=== PATIENT | female | born 1945 | race Caucasian/White ===

== ENCOUNTER 2019-09-30 07:11 | Observation (INO) ==
[2019-09-30] MEDS ORDERED: Regadenoson 0.4 MG/5 ML SYRINGE IVP ONE (08:52)
[2019-09-30] MEDS ORDERED: Naloxone 0.4 MG/ML INJ IVP PRN (11:59)
[2019-09-30] MEDS: Aspirin Enteric Coated 81 MG Tablet PO SCH (13:22)
[2019-09-30 13:44] LABS: Basophils # 0.1 K/mcL (0.0-0.2); Basophils % 0.7 %; Eosinophils % 0.4 %; Immature Granulocytes % 0.1 % (0-4); Lymphocytes # 1.3 K/mcL (0.6-4.6); Lymphocytes % 17.5 %; Mean Corpuscular Volume 108.9 fL (83.0-100.0); Mean Platelet Volume 10.1 fL (9.4-12.4); Monocytes # 0.2 K/mcL (0.0-1.3); Monocytes % 3.3 %
[2019-09-30 13:48] LABS: Alanine Aminotransferase 14 Units/L (7-52); Albumin 4.5 g/dL (3.5-5.7); Albumin/Globulin Ratio 1.5 (1.1-2.2); Alkaline Phosphatase 77 Units/L (34-104); Aspartate Amino Transferase 19 Units/L (13-39); BUN/Creatinine Ratio 25 (6-26); Bilirubin,Total 1.5 mg/dL (0.3-1.0); Blood Urea Nitrogen 26 mg/dL (8-23); Calcium 9.7 mg/dL (8.6-10.3); Carbon Dioxide 25 mEq/L (23-29); Chloride 104 mEq/L (98-107); Glucose 138 mg/dL (70-105); Osmolality,Calculated 289 (280-300); Potassium 4.1 mEq/L (3.5-5.1); Sodium 136 mEq/L (136-145); Total Protein 7.5 g/dL (6.4-8.9); eGFR For African Americans > 60 (> 60); eGFR For Non-African Americans 53 (> 60)
[2019-09-30 13:49] LABS: BUN/Creatinine Ratio 25 (6-26); Blood Urea Nitrogen 26 mg/dL (8-23); Calcium 9.7 mg/dL (8.6-10.3); Carbon Dioxide 25 mEq/L (23-29); Chloride 105 mEq/L (98-107); Glucose 138 mg/dL (70-105); Osmolality,Calculated 291 (280-300); Potassium 4.2 mEq/L (3.5-5.1); Sodium 137 mEq/L (136-145); eGFR For African Americans > 60 (> 60); eGFR For Non-African Americans 53 (> 60)
[2019-09-30 13:56] LABS: Hematocrit 40.3 % (35.3-44.9); Mean Corpuscular HGB Conc 32.3 g/dL (31.6-35.5); Mean Corpuscular Hemoglobin 35.1 pg (28.0-33.3); Neutrophils # 5.6 K/mcL (1.6-8.9); Platelet Count 232 K/mcL (140-400); Red Cell Distribution Width 15.1 % (11.5-14.5); White Blood Count 7.2 K/mcL (4.3-11.1)
[2019-10-01 07:32] LABS: Basophils # 0.1 K/mcL (0.0-0.2); Basophils % 0.9 %; Eosinophils # 0.1 K/mcL (0.0-0.6); Eosinophils % 1.4 %; Hematocrit 38.3 % (35.3-44.9); Hemoglobin 12.6 g/dL (11.5-15.4); Immature Granulocytes % 0.2 % (0-4); Lymphocytes # 1.4 K/mcL (0.6-4.6); Lymphocytes % 21.6 %; Mean Corpuscular HGB Conc 32.9 g/dL (31.6-35.5); Mean Corpuscular Hemoglobin 34.8 pg (28.0-33.3); Mean Corpuscular Volume 105.8 fL (83.0-100.0); Monocytes # 0.4 K/mcL (0.0-1.3); Neutrophils # 4.4 K/mcL (1.6-8.9); Platelet Count 222 K/mcL (140-400); Red Blood Count 3.62 M/mcL (3.82-4.97); Segmented Neutrophils % 69.9 %; White Blood Count 6.4 K/mcL (4.3-11.1)
[2019-10-01] MEDS: Aspirin Enteric Coated 81 MG Tablet PO SCH (07:44)
[2019-10-01 07:47] LABS: BUN/Creatinine Ratio 24 (6-26); Blood Urea Nitrogen 24 mg/dL (8-23); Calcium 9.4 mg/dL (8.6-10.3); Carbon Dioxide 25 mEq/L (23-29); Chloride 103 mEq/L (98-107); Chol/HDL Ratio 2.6 (0-4.9); Cholesterol 135 mg/dL (< 200); Glucose 110 mg/dL (70-105); HDL Cholesterol 51 mg/dL (40-59); LDL Cholesterol,Calculated 62 mg/dL (< 100); Osmolality,Calculated 285 (280-300); Potassium 3.7 mEq/L (3.5-5.1); Sodium 135 mEq/L (136-145); Triglycerides 109 mg/dL (< 150); eGFR For African Americans > 60 (> 60); eGFR For Non-African Americans 55 (> 60)
[2019-10-01] MEDS ORDERED: Heparin 1,000 UNITS/500 mL 500 ML ONE (13:23)
[2019-10-01] MEDS ORDERED: *HR* Heparin 10,000 UNIT/10 ML VIAL ONE (13:23)
[2019-10-01] MEDS ORDERED: ISOVUE-370 200 ML INFUS..BTL ONE (13:23)
[2019-10-01] MEDS ORDERED: 0.9 % Sodium Chloride 2,000 ML ONE (13:24)
[2019-10-01] MEDS ORDERED: Nitroglycerin 1,000 MCG/10 ML VIAL IV ONE (13:24)
[2019-10-01] MEDS ORDERED: *HR* FentaNYL (PF) 100 MCG/2 ML VIAL ONE (13:49)
[2019-10-01] MEDS ORDERED: *HR* Midazolam HCl 2 MG/2 ML VIAL ONE (13:50)
[2019-10-01] MEDS ORDERED: Nitroglycerin Spray 4.9 GM BOTTLE ONE (14:21)
[2019-10-01] MEDS ORDERED: Tirofiban 12.5 MG/250ML 12.5 MG/250 ML BAG ONE (14:28)
[2019-10-01] MEDS ORDERED: Tirofiban 12.5 MG/250ML 12.5 MG/250 ML BAG IVC SCH (15:15)
[2019-10-01] MEDS ORDERED: Ondansetron 4 MG/2 ML VIAL IVP ONE (15:22)
[2019-10-01] MEDS ORDERED: amLODIPine 5 MG TABLET PO SCH (16:30)
[2019-10-01] MEDS: Nitroglycerin 0.4 MG PATCH.TD24 TD SCH (16:41)
[2019-10-01] MEDS: amLODIPine 5 MG TABLET PO SCH (19:16)
[2019-10-02 07:27] VITALS: BP 136/69
[2019-10-02] MEDS: Aspirin Enteric Coated 81 MG Tablet PO SCH (09:12)
[2019-10-02] MEDS: amLODIPine 5 MG TABLET PO SCH (09:12)
[2019-10-02] MEDS: Nitroglycerin 0.4 MG PATCH.TD24 TD SCH (09:14)
== END 2019-10-02 11:35 | disposition home or self-care (01) ==
LOC: 3BNU 07:11 → CARSER 07:11
PROVIDERS: ADMIT Internal Medicine Cardiovascular Disease; ATTEND Internal Medicine Cardiovascular Disease